=== PATIENT | male | born 1960 | race Caucasian/White ===

== ENCOUNTER 2021-09-26 11:37 | Emergency (ER) | payer BC ==
[~2021-09-26] VITALS: Ht 180.3 cm; Wt 106.6 kg
== END 2021-09-26 15:18 | disposition home or self-care (01) ==
LOC: ER1 11:37
DX: U07.1 COVID-19 (principal); Z23 Encounter for immunization; E11.9 Type 2 diabetes mellitus without complications; I10 Essential (primary) hypertension
CPT/HCPCS: 99283; M0245